=== PATIENT | male | born 2000 | race Caucasian/White ===

== ENCOUNTER → 2024-06-18 | Outpatient (CLI) | payer BC ==
--- NOTE | 2024-06-19 06:38 | MR ---
EXAMINATION TYPE: MR brain and iac wo/w con DATE OF EXAM: 06/18/2024 COMPARISON: NONE HISTORY: Left sided hearing loss and tinnitus. TECHNIQUE: Multiplanar, multisequence images of the brain and brainstem and the internal auditory canals are all performed without and with IV contrast, utilizing 12 mL intravenous Gadobutrol . FINDINGS: Diffusion weighted images demonstrate no evidence of a recent infarct or other diffusion ab normality. There is no extra-axial fluid collection or significant white matter signal abnormality. The ventricular system and cisternal spaces are normal in size and appearance. The brain volume is age appropriate. Midline structures demonstrate normal morphology. The craniocervical junction appears within normal limits. Post contrast images demonstrate no abnormal enhancement. The dural venous sinuses appear pa tent. The visualized sinuses are clear and the globes are intact. No suspicious opacification of the mastoid air cells bilaterally. The vestibulocochlear complexes are symmetric and felt to be within normal limits. No abnormal enhancing cerebellopontine angle mass is identified bilaterally. IMPRESSION: No suspicious findings seen to account for patient's clinical symptoms. [facility], , 06/19/2024 6:36 AM
== END | disposition home or self-care (01) ==
LOC: RADMRIMAIN 15:14
PROVIDERS: ATTEND Otolaryngology Otology & Neurotology
DX: H90.5 Unspecified sensorineural hearing loss (principal)
CPT/HCPCS: 70553; A9585